=== PATIENT | male | born 1960 | race Hispanic/Latino ===

== ENCOUNTER 2018-05-10 16:51 | Inpatient (IN) | payer OTHER ==
[~2018-05-10] VITALS: Ht 160 cm; Wt 81.1 kg
[2018-05-10 18:00] LABS: BASOPHILS % (AUTO) 1.1 % (0.0-5.0); EOSINOPHILS % (AUTO) 10.9 % (0.0-8.0); HEMATOCRIT 23.5 % (42-54); LYMPHOCYTES % (AUTO) 5.5 % (21.0-51.0); MEAN CORPUSCULAR HEMOGLOBIN 32.8 pg (27.0-33.0); MEAN CORPUSCULAR VOLUME 96.4 fL (79-99); MONOCYTES % (AUTO) 6.3 % (3.0-13.0); NEUTROPHILS % (AUTO) 76.2 % (40.0-77.0); PLATELET COUNT (AUTO) 256 K/uL (130-400); RED BLOOD CELL COUNT(AUTO) 2.43 MIL/uL (4.50-6.20); RED CELL DISTRIBUTION WIDTH 14.3 % (11.0-15.5); WHITE BLOOD COUNT (AUTO) 6.5 K/uL (4.8-10.8)
[2018-05-10 18:12] LABS: INR 1.13 (0.85-1.15); PARTIAL THROMBOPLASTIN TIME 34.5 SEC (26.3-35.5); PROTHROMBIN TIME 11.8 SEC (9.6-11.6)
[2018-05-10 18:13] LABS: ALBUMIN 3.4 g/dL (3.5-5.0); BILIRUBIN,TOTAL 0.8 mg/dL (0.2-1.0); POTASSIUM 4.3 mmol/L (3.5-5.1); TOTAL PROTEIN, SERUM 7.2 g/dL (6.0-8.3)
[2018-05-10 18:21] LABS: CREATININE 14.6 mg/dL (0.5-1.5)
[2018-05-10] MEDS ORDERED: DEXTROSE 50%-WATER 50 ML DISP.SYRIN IV PRN (19:00)
[2018-05-10] MEDS ORDERED: GLUCAGON 1MG KIT 1 MG ML IM PRN (19:00)
[2018-05-10 19:29] LABS: HEMOGLOBIN A1C 7.6 % (4.0-6.0)
[2018-05-10 20:50] VITALS: BP 182/81
[2018-05-10] MEDS: INSULIN HUMULIN R 100 UNIT/ML 3ML SQ SCH (21:00)
[2018-05-11] VITALS: BP 181/77
[2018-05-11] MEDS ORDERED: LABE200T5 PO (00:33)
[2018-05-11] MEDS ORDERED: DOXE2VIA IV (00:33)
[2018-05-11] MEDS ORDERED: FOLI0.8T2 PO (00:33)
[2018-05-11] MEDS ORDERED: EPOE20006 IJ (00:33)
[2018-05-11] MEDS ORDERED: LACT10SO9 PO (00:33)
[2018-05-11] MEDS ORDERED: SEVE800T7 PO (00:33)
[2018-05-11] MEDS ORDERED: FOLI1TAB15 PO (00:33)
[2018-05-11] MEDS ORDERED: CHOL500050 PO (00:33)
[2018-05-11] MEDS ORDERED: CALC-916 PO (00:33)
[2018-05-11] MEDS ORDERED: DIPH25CA7 PO (00:33)
[2018-05-11] MEDS ORDERED: DOCU100C33 PO (00:33)
[2018-05-11] MEDS ORDERED: AMLO10TA7 PO (00:33)
[2018-05-11] MEDS ORDERED: ATOR40TA69 PO (00:33)
[2018-05-11] MEDS ORDERED: AMLODIPINE BESYLATE 5 MG TAB PO ONE (00:41)
[2018-05-11 04:00] VITALS: BP 165/73
[2018-05-11 06:31] LABS: BASOPHILS % (AUTO) 1.2 % (0.0-5.0); EOSINOPHILS % (AUTO) 11.6 % (0.0-8.0); HEMATOCRIT 21.8 % (42-54); LYMPHOCYTES % (AUTO) 9.6 % (21.0-51.0); MEAN CORPUSCULAR HEMOGLOBIN 32.6 pg (27.0-33.0); MEAN CORPUSCULAR HGB CONC 33.7 g/dL (32.0-36.0); MEAN CORPUSCULAR VOLUME 96.7 fL (79-99); MONOCYTES % (AUTO) 8.9 % (3.0-13.0); NEUTROPHILS % (AUTO) 68.7 % (40.0-77.0); PLATELET COUNT (AUTO) 223 K/uL (130-400); RED BLOOD CELL COUNT(AUTO) 2.26 MIL/uL (4.50-6.20); RED CELL DISTRIBUTION WIDTH 14.5 % (11.0-15.5); WHITE BLOOD COUNT (AUTO) 6.2 K/uL (4.8-10.8)
[2018-05-11 06:51] LABS: ALBUMIN 3.3 g/dL (3.5-5.0); BILIRUBIN,TOTAL 0.7 mg/dL (0.2-1.0); POTASSIUM 3.8 mmol/L (3.5-5.1); TOTAL PROTEIN, SERUM 6.9 g/dL (6.0-8.3)
[2018-05-11 06:54] LABS: HEMOGLOBIN A1C 7.3 % (4.0-6.0)
[2018-05-11 07:00] VITALS: BP 167/75
[2018-05-11] MEDS: INSULIN HUMULIN R 100 UNIT/ML 3ML SQ SCH ×4 (07:30→20:46)
[2018-05-11] MEDS: SEVELAMER HCL 800 MG TABLET PO SCH ×3 (08:00→17:00)
[2018-05-11 08:15] LABS: FERRITIN 921 ng/mL (30-400); IRON, SERUM 189 mcg/dL (65-175)
[2018-05-11] MEDS: FOLIC ACID/VITAMIN B COMP W-C 1 MG CAPSULE PO SCH (09:00)
[2018-05-11] MEDS: LACTULOSE 20 GM/30 ML UDCUP PO SCH (09:00)
[2018-05-11] MEDS: DIPHENHYDRAMINE HCL 25 MG CAPSULE PO SCH ×3 (09:00→20:46)
[2018-05-11] MEDS: ENOXAPARIN SODIUM 30 MG/0.3 ML SQ SCH (09:00)
[2018-05-11] MEDS ORDERED: HYDRALAZINE HCL 20 MG/ML VIAL IV PRN (10:45)
[2018-05-11 11:00] VITALS: BP 186/71
[2018-05-11] MEDS: AMLODIPINE BESYLATE 5 MG TAB PO SCH (12:24)
[2018-05-11] MEDS: LABETALOL HCL 200 MG TABLET PO SCH ×2 (12:24→20:45)
[2018-05-11] MEDS: ONDANSETRON HCL 4 MG/2 ML VIAL IV PRN (13:39)
[2018-05-11] MEDS: DOCUSATE SODIUM 100 MG CAP PO SCH ×2 (14:53→20:45)
[2018-05-11] MEDS: PANTOPRAZOLE SODIUM 40 MG TABLET.DR PO SCH (14:54)
[2018-05-11] MEDS: CALCIUM CARBON 500MG CHEW TAB PO SCH ×2 (14:54→20:46)
[2018-05-11] MEDS: FOLIC ACID 1 MG TABLET PO SCH (14:54)
[2018-05-11] MEDS: ACETAMINOPHEN 325 MG TAB PO PRN (14:55)
[2018-05-11 16:00] VITALS: BP 154/71
[2018-05-11 20:00] VITALS: BP 150/72
[2018-05-11] MEDS: ATORVASTATIN CALCIUM 40 MG TABLET PO SCH (20:46)
[2018-05-12] VITALS (7 sets, daily range): BP systolic 123–152; BP diastolic 56–69
[2018-05-12] MEDS: ACETAMINOPHEN 325 MG TAB PO PRN (00:06)
[2018-05-12] MEDS: INSULIN HUMULIN R 100 UNIT/ML 3ML SQ SCH ×4 (05:58→20:20)
[2018-05-12 06:14] LABS: HEMATOCRIT 21.7 % (42-54); MEAN CORPUSCULAR HEMOGLOBIN 32.4 pg (27.0-33.0); MEAN CORPUSCULAR HGB CONC 34.3 g/dL (32.0-36.0); MEAN CORPUSCULAR VOLUME 94.7 fL (79-99); PLATELET COUNT (AUTO) 205 K/uL (130-400); RED BLOOD CELL COUNT(AUTO) 2.29 MIL/uL (4.50-6.20); RED CELL DISTRIBUTION WIDTH 14.1 % (11.0-15.5); WHITE BLOOD COUNT (AUTO) 5.1 K/uL (4.8-10.8)
[2018-05-12 06:19] LABS: BILIRUBIN,TOTAL 0.9 mg/dL (0.2-1.0); PHOSPHORUS 6.5 mg/dL (2.5-4.9); POTASSIUM 3.3 mmol/L (3.5-5.1); TOTAL PROTEIN, SERUM 6.3 g/dL (6.0-8.3); URIC ACID 5.3 mg/dL (2.6-7.2)
[2018-05-12 06:22] LABS: CREATININE 8.4 mg/dL (0.5-1.5)
[2018-05-12] MEDS: FOLIC ACID 1 MG TABLET PO SCH (08:53)
[2018-05-12] MEDS: FOLIC ACID/VITAMIN B COMP W-C 1 MG CAPSULE PO SCH (08:54)
[2018-05-12] MEDS: SEVELAMER HCL 800 MG TABLET PO SCH ×3 (08:54→17:10)
[2018-05-12] MEDS: CALCIUM CARBON 500MG CHEW TAB PO SCH ×2 (08:54→20:20)
[2018-05-12] MEDS: LABETALOL HCL 200 MG TABLET PO SCH ×2 (08:54→20:19)
[2018-05-12] MEDS: AMLODIPINE BESYLATE 5 MG TAB PO SCH (08:55)
[2018-05-12] MEDS: ENOXAPARIN SODIUM 30 MG/0.3 ML SQ SCH (08:55)
[2018-05-12] MEDS: PANTOPRAZOLE SODIUM 40 MG TABLET.DR PO SCH (08:55)
[2018-05-12] MEDS: DOCUSATE SODIUM 100 MG CAP PO SCH ×2 (08:56→20:20)
[2018-05-12] MEDS: LACTULOSE 20 GM/30 ML UDCUP PO SCH (08:56)
[2018-05-12] MEDS: DIPHENHYDRAMINE HCL 25 MG CAPSULE PO SCH ×3 (08:57→20:20)
[2018-05-12] MEDS ORDERED: CHOLECALCIFEROL 50000 UNIT PO SCH (09:00)
[2018-05-12] MEDS: ONDANSETRON HCL 4 MG/2 ML VIAL IV PRN (17:50)
[2018-05-12] MEDS: ATORVASTATIN CALCIUM 40 MG TABLET PO SCH (20:20)
[2018-05-12] MEDS ORDERED: EPOETIN ALFA 10,000 UNIT/ML VIAL IV ONE (21:30)
[2018-05-13 00:05] VITALS: BP 130/56
[2018-05-13 04:15] VITALS: BP 134/51
[2018-05-13 04:53] LABS: MEAN CORPUSCULAR HEMOGLOBIN 32.4 pg (27.0-33.0); MEAN CORPUSCULAR HGB CONC 34.5 g/dL (32.0-36.0); MEAN CORPUSCULAR VOLUME 94.1 fL (79-99); PLATELET COUNT (AUTO) 222 K/uL (130-400); RED BLOOD CELL COUNT(AUTO) 2.55 MIL/uL (4.50-6.20); RED CELL DISTRIBUTION WIDTH 13.9 % (11.0-15.5); WHITE BLOOD COUNT (AUTO) 7.3 K/uL (4.8-10.8)
[2018-05-13 05:04] LABS: POTASSIUM 3.4 mmol/L (3.5-5.1)
[2018-05-13 05:14] LABS: HEPATITIS Bs ANTIGEN SCREEN P Negative (Negative)
[2018-05-13] MEDS: INSULIN HUMULIN R 100 UNIT/ML 3ML SQ SCH ×4 (06:39→20:06)
[2018-05-13 08:05] VITALS: BP 153/66
[2018-05-13] MEDS ORDERED: EPOETIN ALFA 20000 UNIT IJ SCH (09:00)
[2018-05-13] MEDS ORDERED: DOXERCALCIFEROL IVP SCH (09:00)
[2018-05-13] MEDS: DIPHENHYDRAMINE HCL 25 MG CAPSULE PO SCH ×3 (09:00→20:00)
[2018-05-13] MEDS: LACTULOSE 20 GM/30 ML UDCUP PO SCH (09:05)
[2018-05-13] MEDS: AMLODIPINE BESYLATE 5 MG TAB PO SCH (09:05)
[2018-05-13] MEDS: FOLIC ACID/VITAMIN B COMP W-C 1 MG CAPSULE PO SCH (09:05)
[2018-05-13] MEDS: SEVELAMER HCL 800 MG TABLET PO SCH ×3 (09:06→17:16)
[2018-05-13] MEDS: LABETALOL HCL 200 MG TABLET PO SCH ×2 (09:06→20:00)
[2018-05-13] MEDS: PANTOPRAZOLE SODIUM 40 MG TABLET.DR PO SCH (09:06)
[2018-05-13] MEDS: DOCUSATE SODIUM 100 MG CAP PO SCH ×2 (09:06→20:01)
[2018-05-13] MEDS: CALCIUM CARBON 500MG CHEW TAB PO SCH ×2 (09:06→20:01)
[2018-05-13] MEDS: FOLIC ACID 1 MG TABLET PO SCH (09:06)
[2018-05-13] MEDS: ENOXAPARIN SODIUM 30 MG/0.3 ML SQ SCH (09:07)
[2018-05-13 12:05] VITALS: BP 126/60
[2018-05-13 16:27] VITALS: BP 140/68
[2018-05-13 19:28] VITALS: BP 146/68
[2018-05-13] MEDS: ATORVASTATIN CALCIUM 40 MG TABLET PO SCH (20:01)
[2018-05-14 00:09] VITALS: BP 155/79
[2018-05-14 04:20] VITALS: BP 157/75
[2018-05-14 04:45] LABS: HEMATOCRIT 23.3 % (42-54); MEAN CORPUSCULAR HEMOGLOBIN 33.1 pg (27.0-33.0); MEAN CORPUSCULAR VOLUME 94.6 fL (79-99); PLATELET COUNT (AUTO) 210 K/uL (130-400); RED BLOOD CELL COUNT(AUTO) 2.47 MIL/uL (4.50-6.20); WHITE BLOOD COUNT (AUTO) 7.7 K/uL (4.8-10.8)
[2018-05-14 04:59] LABS: PHOSPHORUS 5.1 mg/dL (2.5-4.9); POTASSIUM 3.6 mmol/L (3.5-5.1)
[2018-05-14 05:03] LABS: CREATININE 7.9 mg/dL (0.5-1.5)
[2018-05-14] MEDS: INSULIN HUMULIN R 100 UNIT/ML 3ML SQ SCH ×2 (06:13→11:30)
[2018-05-14 07:00] VITALS: BP 135/58
[2018-05-14] MEDS: SEVELAMER HCL 800 MG TABLET PO SCH ×2 (08:00→12:56)
[2018-05-14] MEDS: DIPHENHYDRAMINE HCL 25 MG CAPSULE PO SCH (09:00)
[2018-05-14] MEDS: ENOXAPARIN SODIUM 30 MG/0.3 ML SQ SCH (09:00)
[2018-05-14] MEDS: LACTULOSE 20 GM/30 ML UDCUP PO SCH (09:00)
[2018-05-14 11:00] VITALS: BP 134/79
[2018-05-14] MEDS ORDERED: EPOETIN ALFA 10,000 UNIT/ML VIAL SQ ONE (12:30)
[2018-05-14] MEDS: FOLIC ACID/VITAMIN B COMP W-C 1 MG CAPSULE PO SCH (12:55)
[2018-05-14] MEDS: DOCUSATE SODIUM 100 MG CAP PO SCH (12:55)
[2018-05-14] MEDS: LABETALOL HCL 200 MG TABLET PO SCH (12:56)
[2018-05-14] MEDS: AMLODIPINE BESYLATE 5 MG TAB PO SCH (12:56)
[2018-05-14] MEDS: FOLIC ACID 1 MG TABLET PO SCH (12:56)
[2018-05-14] MEDS: PANTOPRAZOLE SODIUM 40 MG TABLET.DR PO SCH (12:56)
[2018-05-14] MEDS: CALCIUM CARBON 500MG CHEW TAB PO SCH (12:57)
== END 2018-05-14 15:59 | disposition home or self-care (01) | DRG 682 ==
LOC: EDH 16:51 → EDHIP 16:52 → 3BH 20:50
PROVIDERS: ADMIT Family Medicine; ATTEND Family Medicine
PROC: 5A1D70Z Performance of Urinary Filtration, Intermittent, Less than 6 Hours Per Day (ICD-10-PCS; principal; 2018-05-11)
PROC: 5A1D70Z Performance of Urinary Filtration, Intermittent, Less than 6 Hours Per Day (ICD-10-PCS; 2018-05-12)
PROC: 5A1D70Z Performance of Urinary Filtration, Intermittent, Less than 6 Hours Per Day (ICD-10-PCS; 2018-05-14)
DX: I12.0 Hypertensive chronic kidney disease with stage 5 chronic kidney disease or end stage renal disease (principal); N18.6 End stage renal disease; E87.2 Acidosis; E87.70 Fluid overload, unspecified; D63.1 Anemia in chronic kidney disease; E11.21 Type 2 diabetes mellitus with diabetic nephropathy; E11.22 Type 2 diabetes mellitus with diabetic chronic kidney disease; E78.5 Hyperlipidemia, unspecified; H54.3 Unqualified visual loss, both eyes; Z99.2 Dependence on renal dialysis; Z83.3 Family history of diabetes mellitus; Z82.49 Family history of ischemic heart disease and other diseases of the circulatory system; Z82.3 Family history of stroke; Z82.0 Family history of epilepsy and other diseases of the nervous system
CPT/HCPCS: 36415; 71045; 80048; 80053; 80061; 82728; 82948; 83036; 83540; 83690; 83735; 84100; 84484; 84550; 85025; 85027; 85610; 85730; 86701; 86704; 86706; 87040; 87340; 87390; 87520; 90935; 93005; G0378; J0885; J1650; J1815; J2405; Q0163

== ENCOUNTER 2018-07-04 00:27 | Emergency (ER) | payer OTHER ==
[~2018-07-04 00:27] MED LIST: AMLO10TA7 PO; ATOR40TA69 PO; CALC-916 PO; CHOL500050 PO; DIPH25CA7 PO; DOCU100C33 PO; DOXE2VIA IV; EPOE20006 IJ; FOLI0.8T2 PO; FOLI1TAB15 PO; LABE200T5 PO; LACT10SO9 PO; SEVE800T7 PO
[2018-07-04 01:22] LABS: BASOPHILS % (AUTO) 2.4 % (0.0-5.0); EOSINOPHILS % (AUTO) 15.4 % (0.0-8.0); HEMATOCRIT 28.6 % (42-54); LYMPHOCYTES % (AUTO) 16.9 % (21.0-51.0); MEAN CORPUSCULAR HGB CONC 34.8 g/dL (32.0-36.0); MONOCYTES % (AUTO) 6.5 % (3.0-13.0); NEUTROPHILS % (AUTO) 58.8 % (40.0-77.0); NUCLEATED RED BLOOD CELLS 0.1 % (0.0-0.19); PLATELET COUNT (AUTO) 247 K/uL (130-400); RED BLOOD CELL COUNT(AUTO) 3.21 MIL/uL (4.50-6.20)
[2018-07-04 02:08] LABS: ALBUMIN 4.2 g/dL (3.5-5.0); BILIRUBIN,TOTAL 0.4 mg/dL (0.2-1.0); POTASSIUM 4.7 mmol/L (3.5-5.1); TOTAL PROTEIN, SERUM 8.3 g/dL (6.0-8.3)
[2018-07-04 02:12] LABS: CREATININE 9.9 mg/dL (0.5-1.5)
== END 2018-07-04 03:22 | disposition home or self-care (01) ==
LOC: EDH 00:27
DX: E11.22 Type 2 diabetes mellitus with diabetic chronic kidney disease (principal); R11.2 Nausea with vomiting, unspecified; I12.0 Hypertensive chronic kidney disease with stage 5 chronic kidney disease or end stage renal disease; N18.6 End stage renal disease; H54.7 Unspecified visual loss; Z79.4 Long term (current) use of insulin; Z99.2 Dependence on renal dialysis; Z89.422 Acquired absence of other left toe(s); Z89.421 Acquired absence of other right toe(s)
CPT/HCPCS: 36415; 71045; 80053; 82550; 83690; 84484; 85025; 93005